=== PATIENT | female | born 1975 | race Caucasian/White ===

== ENCOUNTER 2016-10-30 11:40 | Emergency (ER) | payer OTHER ==
[2016-10-30] MEDS ORDERED: ONDANSETRON DISINTEGRATING 4 MG TAB PO ONE (12:11)
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
[2016-10-30 14:11] VITALS: BP 122/75; PULSE 50; RESP 16; TEMP 98.2; O2SAT 95
== END 2016-10-30 14:10 | disposition home or self-care (01) ==
DX: M54.12 Radiculopathy, cervical region (principal); V49.50XA Passenger injured in collision with unspecified motor vehicles in traffic accident, initial encounter; Y92.410 Unspecified street and highway as the place of occurrence of the external cause